=== PATIENT | male | born 1960 | race Caucasian/White ===

== ENCOUNTER → 2024-06-21 | Outpatient (CLI) | payer MEDICARE ==
[~2024-06-21] MED LIST: ASPI-845 PO; IBUP-1984 PO; LISI5TAB22 PO; VALARIAN PO
--- NOTE | 2024-06-21 12:14 | VASCULAR REPORT ---
INDICATION: Tobacco use TECHNIQUE: Multiple sonographic images of the abdominal aorta were obtained. COMPARISON: None FINDINGS: The aorta [id number] cm. The right iliac artery measures 11 mm in diameter. The left cassia c measured 10 mm in diameter. There is no evidence for atherosclerotic disease. There is no periaort ic fluid. IMPRESSION: 1. No evidence for abdominal aortic aneurysm.
== END | disposition home or self-care (01) ==
LOC: VAS 08:21
PROVIDERS: ATTEND Family Medicine
DX: Z13.6 Encounter for screening for cardiovascular disorders (principal)
CPT/HCPCS: 93978